=== PATIENT | female | born 1955 | race Caucasian/White ===

== ENCOUNTER 2016-07-02 11:21 | Inpatient (IN) | payer OTHER ==
[~2016-07-02] VITALS: Ht 170.2 cm; Wt 79.4 kg
[2016-07-02 00:30] VITALS: BP 170/90
--- NOTE | 2016-07-02 11:33 | ED GENERAL ADULT ---
See Addendum History of Present Illness General Chief Complaint: General Adult Stated Complaint: SLURRED SPEACH SINCE THISAM, R ARM WEAKNESS Source: patient, family Exam Limitations: no limitations Triage Nurses Notes Reviewed? yes HPI: 60 yo F PMH TIA presenting with neurologic Sx. Waxing and waning neurologic symptoms for the last 2-3 weeks, intermittent expressive aphasia and right hand weakness/numbness, evaluated by neurology yesterday, MRI onbtained, per patient showed CVA. Acute worsening of symptoms since waking up this morning around 9:00 , increased word finding difficulty and increased problems using right hand, weakness and "heaviness" feeling prompting presentation to the emergency department. Denies fevers, chills, neck pain, neck stiffness, headache, dizziness, visual changes, dysarthria. (GIANCARLO LEMONS,NICOLETTE) Vital Signs & Intake/Output Vital Signs & Intake/Output Vital Signs Date Time Temp Pulse Resp B/P B/P Pulse O2 O2 Flow FiO2 Mean Ox Delivery Rate 07/02 1336 98.3 93 18 170/96 95 Room Air 07/02 1204 Room Air 07/02 1130 97.5 104 18 190/110 98 Room Air Allergies Coded Allergies: gluten (INTOLERANCE 07/02/16) Reconcile Medications Aspirin (Ecotrin*) 81 MG TABLET.DR 81 MG PO DAILY CVA Atorvastatin Calcium 40 MG TABLET 40 MG PO 1700 CVA Clopidogrel Bisulfate (Plavix) 75 MG TABLET 75 MG PO DAILY CVA Garlic 1 EACH TABLET 3 TAB PO TID SUPPLEMENT (Reported) (TORSTEN LEMONS,ARIEL) Past History Travel History Traveled to [place] past 21 day No Medical History Any Pertinent Medical History? 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 Yes (NICOLETTE MONDRAGON MD) Review of Systems Review of Systems Constitutional: Reports: weakness. EENTM: Reports: no symptoms. Respiratory: Reports: no symptoms. Cardiovascular: Reports: no symptoms. GI: Reports: no symptoms. Genitourinary: Reports: no symptoms. Musculoskeletal: Reports: no symptoms. Skin: Reports: no symptoms. Neurological/Psychological: Reports: confusion, numbness, weakness, other (expressive aphasia). Hematologic/Endocrine: Reports: no symptoms. Immunologic/Allergic: Reports: no symptoms. All Other Systems: Reviewed and Negative (NICOLETTE MONDRAGON MD) Physical Exam Physical Exam General Appearance: well developed/nourished, no apparent distress, alert, awake , anxious Head: atraumatic, normal appearance Eyes: Bilateral: normal appearance, PERRL. 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 No CVA/TIA Diagnosis: Yes Severe Sepsis Present: No Septic Shock Present: No (GIANCARLO LEMONS,NICOLETTE) Progress Differential Diagnoses I considered the following diagnoses in my evaluation of the patient: [TIA, CVA, ICH] Initial ED EKG: normal sinus rhythm (GIANCARLO LEMONS,NICOLETTE) Plan of Care: Orders Procedure Date/time Status Admit to inpatient 07/02 1529 Active EKG 07/02 1155 Active URINALYSIS 07/02 1148 Active COMPREHENSIVE METABOLIC PANEL 07/02 1148 Complete CBC WITHOUT DIFFERENTIAL 07/02 1148 Complete Laboratory Tests 07/02/16 1200: Anion Gap 14, Estimated GFR > 60, BUN/Creatinine Ratio 15.7, Glucose 122 H, Calcium 9.7, Total Bilirubin 0.8, AST 21, ALT 34, Alkaline Phosphatase 82, Total Protein 7.3, Albumin 4.4, Globulin 2.9, Albumin/Globulin Ratio 1.5, CBC w Diff NO MAN DIFF REQ, RBC 4.95, MCV 93.4, MCH 31.0, RDW 13.2, MPV 7.9, Gran % 80.4 H , Lymphocytes % 15.9 L, Monocytes % 3.0, Eosinophils % 0.4, Basophils % 0.3, Absolute Granulocytes 8.3 H, Absolute Lymphocytes 1.6, Absolute Monocytes 0.3, Absolute Eosinophils 0, Absolute Basophils 0, PUBS MCHC 33.2 Physician MDM: 60 yo F PMH TIA presenting with neurologic Sx. VSS, neurologic exam as above. 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 Given that the patient's last known normal time was last night at 8:00 PM, she is well side of the window for TPA administration, therefore stroke code not called. EKG sinus rhythm. CMP, CBC unremarkable. CTA of head and neck with acute/subacute left parietal stroke. Discussed with the neurologist the patient saw yesterday , notes the stroke was also notified an MRI performed yesterday, states the patient will require admission if she has worsening symptoms, requested on-call neurology consult to see patient at [facility]. Dr. Romeo with on-call neurology service consult it, will see patient during admission. Admit hospitalist service for further management of new stroke. (GIANCARLO LEMONS,NICOLETTE) Departure Departure Disposition: HOME OR SELF CARE Condition: Stable Clinical Impression Primary Impression: CVA (cerebral vascular accident) Departure Forms: Customer Survey General Discharge Information Admission Note Spoke With: JOLIE LEMONS,AIMEE Rojas Documentation of Exam: Documentation of any treatments & extenuating circumstances including Concerns Regarding Discharge (functional status, medication knowledge or non-compliance, living conditions, etc.) that warrant an admission rather than observation: [ Patient has known carotid artery stenosis which is the likely etiology of her recent diagnosis stroke, if discharge she has a high likelihood of recurrent stroke with progressive neurologic deficit, severe morbidity, and possibly mortality, the patient has a newly identified left parietal stroke for which she has received no previous management, given the severity of underlying pathology she requires inpatient admission for further evaluation of the underlying cause of this stroke and rehabilitation that she cannot receive the outpatient setting ] (NICOLETTE MONDRAGON MD) Departure Prescriptions: Current Visit Scripts Clopidogrel Bisulfate (Plavix) 75 MG PO DAILY 28 Days Atorvastatin Calcium 40 MG PO 1700 28 Days Aspirin (Ecotrin*) 81 MG PO DAILY 28 Days PA/MILK DRIVER Co-Sign Statement Statement: ED Attending supervision documentation- [X] I saw and evaluated the patient. I have also reviewed all the pertinent lab results and diagnostic results. I agree with the findings and the plan of care as documented in the PA's/MILK DRIVER's documentation. [X] I have reviewed the ED Record and agree with the PA's/MILK DRIVER's documentation. [] Additions or exceptions (if any) to the PAs/MILK DRIVER's note and plan are summarized below: [] (TORSTEN LEMONS,ARIEL) Critical Care Note Critical Care Note Critical Care Time: non-applicable (GIANCARLO LEMONS,NICOLETTE)
--- NOTE | 2016-07-02 11:35 | NUR ---
60 YEAR OLD FEMALE TO ER WITH HER SPOUSE , PTS SPOUSE STATES THAT PTS SPEECH HAS BEEN OFF FOR A COUPLE OF WEEKS ,PT DOES NOT GO TO REGULAR DOCT[facility] AND STATES THAT SHE WENT TO HER NATURAL [facility] YESTERDAY WITH HER COMPLAINTS, STATES THAT HE ORDERED AND MRI WHICH SHOWED THAT SHE HAS BEEN HAVING TIA'S. PT DECIDED TO COME TO ER THIS AM FOR FURTHER EVAL. NO SLURRED SPEECH NOTED BUT PT NOTED TO HAVE DIFFICULT TIME GETTING OUT HER THOUGHTS. PT ALSO SOMPLAINS OF R ARM WEAKNESS THAT HAS ALSO BEEN GOING ON. PT NOTED WITH WEAK R HAND GRASP. PT HAS HISTORY OF HTN AND STTAES THAT SHE DOES NOT TAKE MEDS , BP 190/110. PT TO ROOM.
--- NOTE | 2016-07-02 11:44 | NUR ---
PT TO ROOM20 BY WHEEL, MD TORSTEN AND MD NICOLETTE TO BEDSIDE FOR PT EVAL.
--- NOTE | 2016-07-02 12:03 | NUR ---
BLOOD DRAWN AND SENT TO LAB-S[facility]. EKG IN PROGRESS.
[2016-07-02 12:10] LABS: ABSOLUTE BASOPHIL COUNT 0 /CUMM (0.0-0.2); ABSOLUTE EOSINOPHIL COUNT 0 /CUMM (0.0-0.7); ABSOLUTE GRANULOCYTE CT 8.3 /CUMM (1.4-6.5); ABSOLUTE LYMPH COUNT 1.6 /CUMM (1.2-3.4); ABSOLUTE MONOCYTE COUNT 0.3 /CUMM (0.10-0.60); BASOPHIL % 0.3 % (0.0-2.0); EOSINOPHIL % 0.4 % (0-5); GRANULOCYTE % 80.4 % (42.2-75.2); HEMATOCRIT 46.3 % (37-47); MEAN CORPUSCULAR HGB CONC 33.2 G/DL (33.0-37.0); MEAN CORPUSCULAR VOLUME 93.4 FL (81.0-99.0); MEAN PLATELET VOLUME 7.9 FL (7.4-10.4); PLATELET COUNT 289 /CUMM (130-400); RBC DISTRIBUTION WIDTH 13.2 % (11.5-14.5); RED BLOOD CELL CT 4.95 /CUMM (4.20-5.40); WHITE BLOOD CELL COUNT 10.3 /CUMM (4.8-10.8)
--- NOTE | 2016-07-02 14:30 | NUR ---
MD GIANCARLO TO BEDSIDE TO DISCUSS TEST RESULTS.
--- NOTE | 2016-07-02 14:54 | CT SCAN REPORT ---
EXAMINATION: CT ANGIOGRAM OF THE NECK CT ANGIOGRAM OF THE HEAD CLINICAL INFORMATION: Right hand weakness, expressive aphasia. Assess for CVA. COMPARISON: None. TECHNIQUE: Noncontrast axial CT scan of the head was obtained. Test bolus sequences followed by intravenous administration of 95 mL of Optiray 320. Helical imaging was performed in the axial plane from the mediastinum to the skull vertex. Delayed postcontrast imaging of the head was also performed. The degree of stenosis is based off NASCET criteria. The data was processed at the systems technologist workstation for generation of MIP sequences. Three-dimensional volume rendered reformatted images were also generated at an offline 3-D workstation. FINDINGS: CT head: There are areas of low parenchymal attenuation in the posterior left parieto-occipital region, which are in a wedge-shaped distribution, and are consistent with areas of acute/subacute infarction. There is no evidence of acute intracranial hemorrhage. No abnormal mass-effect or midline shift is seen. Garcia to white matter differentiation is well preserved. There are also areas of low density in the left basal ganglia, consistent with ischemia which is age-indeterminate. No extra-axial fluid collections are identified. There is no abnormal enhancement. The ventricles are normal in size. The osseous structures and soft tissues are normal. The mastoid air cells well-aerated. There is almost complete opacification of the right sphenoid sinus with sclerotic and slightly thickened strickland consistent with chronic sinus disease. There is extensive atheromatous calcification of the cavernous internal carotid arteries bilaterally and in the left vertebral artery. CTA neck: There is a classic configuration of the arch of the aorta. Beam hardening artifact from the contrast in the adjacent venous structures distorts imaging in the area. The great vessels of the neck appear widely patent. The subclavian arteries appear normal bilaterally. The common carotid arteries have normal caliber. The carotid bifurcations bilaterally appear normal, and there is no significant atheromatous calcification. Nonatheromatous plaque is seen around the dorsal aspect of the proximal internal carotid artery on the right. Both internal carotid arteries in the neck are patent with uniform caliber, although the caliber is diffusely narrower on the left compared to the right. The origins of both vertebral arteries are well seen and appear normal. Both vertebral arteries are widely patent and demonstrate good opacification throughout their cervical course. The left vertebral artery is dominant. Nonvascular: The lung apices appear well-aerated. The thyroid gland is not enlarged. There is no cervical lymphadenopathy. The temporomandibular joints appear normal. As described above there is opacification of the right sphenoid sinus. CTA head: In the anterior circulation, there is narrowing of the caliber of the petrous left internal carotid artery extending through the cavernous portion. There is severe narrowing of the supraclinoid left internal carotid artery which appears occluded just proximal to the internal carotid artery bifurcation. There is significant atheromatous calcification of the bilateral cavernous internal carotid arteries. The right carotid bifurcation appears normal. The A1 segment of the left anterior cerebral artery is thin but patent. The anterior cerebral artery A2 segments are patent bilaterally. The caliber of the left middle cerebral artery is narrower compared to the right relatively extensively, but no focal stenosis or occlusion is demonstrated. In the posterior circulation, the left vertebral artery is dominant. There is extensive atheromatous calcification in the proximal left vertebral artery, but the vessel remains patent. The basilar artery is patent. The posterior cerebral arteries bilaterally are patent. The dural venous sinuses opacify normally. IMPRESSION: 1. There are areas of low attenuation in the left parieto-occipital region, consistent with areas of acute/subacute infarction without evidence of hemorrhage. There is low attenuation in the left basal ganglia. These findings could be further evaluated with MRI scan. 2. There are no masses or areas of abnormal enhancement. 3. There is significant opacification of the right sphenoid sinus. 4. There is severe vasculopathy in the anterior and posterior circulations. There is narrowing of the left internal carotid artery compared to the right relatively diffusely. There is severe atheromatous calcification of the bilateral cavernous internal carotid arteries. The distal cervical left internal carotid artery has thinner caliber compared to the right, and the supraclinoid left internal carotid artery is markedly stenotic and is likely occluded just proximal to the left internal carotid artery bifurcation. The caliber of the left middle cerebral artery branches are diffusely narrower compared to the right, without focal stenosis. 5. There are atheromatous calcifications in the posterior circulation, but no focal stenosis or aneurysms are demonstrated. 6. This critical result was discussed with Javier Hernández by telephone on 07/02/2016 at 2:30 PM and it was ascertained that the content and urgency of the report was understood at the time of direct communication.
--- NOTE | 2016-07-02 16:01 | NUR ---
PT AWARE OF URINE SAMPLE, NOT ABLE TO PROVIDE ONE AT THIS TIME. FAMILY AT BEDSIDE. AWAITING ADMISSION.
--- NOTE | 2016-07-02 16:39 | NUR ---
PT ADMITTED TO ROOM 185-2
--- NOTE | 2016-07-02 17:01 | Cons- Neurology ---
General Information and HPI Consulting Request Date of Consult: 07/02/16 Requested By: MACARENA DUONG MD Reason for Consult: Left parietal stroke Source of Information: patient, family Exam Limitations: no limitations History of Present Illness: 60-year-old right-handed woman difficulty writing about 1 month ago. Until about one week ago when some of her revision she saw an op Sandra will just who told her she had a problem with the brain. On the same time had transient difficulty speaking which recovered. He seemed relatively well until Tuesday 2 days ago her natural pathic physician ordered an MRI scan which was done yesterday and disclosed a left parietal stroke. She saw Dr. Lee in neurologic consultation yesterday. Later yesterday she developed increased difficulty speaking which persists today. There is associated weakness of the right arm. Prior to yesterday she was not taking aspirin, does not know of any history of hypertension, has borderline cholesterol levels, uses garlic. Father had a cardiac problem at a young age, family history otherwise not known. Patient quit smoking about 30 years ago. Allergies/Medications Current Medications: Current Medications Sig/Sathya Start time Last Medication Dose Route Stop Time Status Admin Aspirin Buffered 325 MG DAILY 07/03 1000 AC PO Clopidogrel Bisulfate 75 MG DAILY 07/03 1000 AC PO Enoxaparin Sodium 40 MG DAILY 07/03 1000 AC SC Multivitamins 1 TAB DAILY 07/03 1000 AC PO Sodium Chloride 1,000 ML SEE RATE 07/02 1615 AC IV Review of Systems Review of Systems: ROS: A complete medical systems review was obtained. No chest pain or palpitations, no headaches, no other pertinent complaints uncovered. 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 No carotid bruits and no cardiac murmur. No peripheral edema Mental status: Alert, attentive, fully oriented, mild to moderate expressive aphasia, therefore memory and general fund of knowledge not specifically tested Funduscopic unremarkable Right homonymous hemianopsia. Eye movements full without nystagmus, pupils midsize equal round and reactive to light. 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 Leg sensation normal Tendon reflexes increased in the right arm and knee, right Babinski sign Coordination no ataxia Gait [testing deferred] Last 48 Hours of Lab Results: Laboratory Tests 07/02 1200 Chemistry Sodium (137 - 145 mmol/L) 144 Potassium (3.5 - 5.1 mmol/L) 4.1 Chloride (98 - 107 mmol/L) 103 Carbon Dioxide (22 - 30 mmol/L) 27 Anion Gap (5 - 16) 14 BUN (7 - 17 mg/dL) 11 Creatinine (0.5 - 1.0 mg/dL) 0.7 Estimated GFR (>60 ml/min) > 60 BUN/Creatinine Ratio (7 - 25 %) 15.7 Glucose (65 - 99 mg/dL) 122 H Calcium (8.4 - 10.2 mg/dL) 9.7 Total Bilirubin (0.2 - 1.3 mg/dL) 0.8 AST (14 - 36 U/L) 21 ALT (9 - 52 U/L) 34 Alkaline Phosphatase (<127 U/L) 82 Total Protein (6.3 - 8.2 g/dL) 7.3 Albumin (3.5 - 5.0 g/dL) 4.4 Globulin (1.9 - 4.2 gm/dL) 2.9 Albumin/Globulin Ratio (1.1 - 2.2 %) 1.5 Hematology CBC w Diff NO MAN DIFF REQ WBC (4.8 - 10.8 /CUMM) 10.3 RBC (4.20 - 5.40 /CUMM) 4.95 Hgb (12.0 - 16.0 G/DL) 15.4 Hct (37 - 47 %) 46.3 MCV (81.0 - 99.0 FL) 93.4 MCH (27.0 - 31.0 PG) 31.0 RDW (11.5 - 14.5 %) 13.2 Plt Count (130 - 400 /CUMM) 289 MPV (7.4 - 10.4 FL) 7.9 Gran % (42.2 - 75.2 %) 80.4 H Lymphocytes % (20.5 - 51.1 %) 15.9 L Monocytes % (1.7 - 9.3 %) 3.0 Eosinophils % (0 - 5 %) 0.4 Basophils % (0.0 - 2.0 %) 0.3 Absolute Granulocytes (1.4 - 6.5 /CUMM) 8.3 H Absolute Lymphocytes (1.2 - 3.4 /CUMM) 1.6 Absolute Monocytes (0.10 - 0.60 /CUMM) 0.3 Absolute Eosinophils (0.0 - 0.7 /CUMM) 0 Absolute Basophils (0.0 - 0.2 /CUMM) 0 PUBS MCHC (33.0 - 37.0 G/DL) 33.2 Imaging/Other Studies: Outpatient MRI was done and is to be loaded into the computer system here from the disc CTA head and neck: IMPRESSION: 1. There are areas of low attenuation in the left parieto-occipital region, consistent with areas of acute/subacute infarction without evidence of hemorrhage. There is low attenuation in the left basal ganglia. These findings could be further evaluated with MRI scan. 2. There are no masses or areas of abnormal enhancement. 3. There is significant opacification of the right sphenoid sinus. 4. There is severe vasculopathy in the anterior and posterior circulations. There is narrowing of the left internal carotid artery compared to the right relatively diffusely. There is severe atheromatous calcification of the bilateral cavernous internal carotid arteries. The distal cervical left internal carotid artery has thinner caliber compared to the right, and the supraclinoid left internal carotid artery is markedly stenotic and is likely occluded just proximal to the left internal carotid artery bifurcation. The caliber of the left middle cerebral artery branches are diffusely narrower compared to the right, without focal stenosis. 5. There are atheromatous calcifications in the posterior circulation, but no focal stenosis or aneurysms are demonstrated. Assessment/Plan Assessment: Left parietal stroke with preceding TIAs due to atherosclerotic cerebrovascular disease. An signs are within the left MCA and therefore left internal carotid territory degree of stenosis unclear from the CTA. The patient was not on aspirin or other anti-antithrombotic's, nor on statins Recommendations: Carotid Doppler to better estimate percentage of narrowing cardiac telemetry Echocardiogram Fasting lipid profile Aspirin and Plavix have been started here and should be continued Begin atorvastatin 40 MG by mouth daily Stroke education started with family and daughter were present today Permissive hypertension at this time, allow the current 170 to 180 systolic range Will follow as needed Consult Acknowledgment - Thank you for your consult request.
--- NOTE | 2016-07-02 17:06 | NUR ---
HOUSE STAFF AT BEDSIDE FOR PT EVAL.
[2016-07-02] MEDS ORDERED: GARLIC1 EAC1 PO (17:17)
--- NOTE | 2016-07-02 17:35 | NUR ---
REPORT CALLED TO TELE. PT AT US AT THIS TIME.
--- NOTE | 2016-07-02 17:36 | History & Physical ---
NEFTALY LEMONS[place] [place] 1736: General Information and HPI MD Statement: I have seen and personally examined DILAN BALDERRAMA and documented this H&P. The patient is a 60 year old F who presented with a patient stated chief complaint of word-finding difficulties and right upper extremity weakness. Source of Information: patient, family Exam Limitations: no limitations History of Present Illness: Ms. Balderrama is a 60 y/o F with PMHx of HTN who presents with waxing and waning neurological symptoms for the past few weeks. History is provided by patient and her and daughter at bedside. For the past month leading up to current presentation, patient has been having difficulty writing, stating that her handwriting has been "messy" during this time. One week ago, she had a transient episode of word-finding difficulties, with her reporting that her mouth appeared "crooked" at that time. The episode lasted about 10 minutes. Two days ago she presented to her naturopathic physician who ordered MRI Brain, performed yesterday, which revealed a left parietal stroke. Based on these findings, she went to see neurologist Dr. Quinn Lee who started her on aspirin and Plavix and recommended ECHO and carotid doppler US. Patient was doing relatively well when she developed right upper weakness yesterday, stating that her right arm and hand felt heavy and weak, with strength about 50% of normal. Speech difficulty worsened during this time as well and has persisted up until current presentation. This morning, she woke up with increasing right arm weakness associated with numbness and decided to come to the ED for further evaluation. For the past week leading up to current presentation, patient has been experiencing headaches. Her has noted that she has been having difficulties with peripheral vision over the past month. Of note, patient does not take any medications other than garlic supplements for borderline elevated cholesterol levels and Advil PRN for sinusitis and hand pain and swelling. Allergies/Medications Allergies: Coded Allergies: gluten (INTOLERANCE 07/02/16) Home Med list Garlic 1 EACH TABLET 3 TAB PO TID SUPPLEMENT (Reported) Past History Travel History Traveled to [place] past 21 day No Medical History Neurological: TIA EENT: sinusitis Cardiovascular: hypertension Respiratory: NONE Gastrointestinal: NONE Hepatic: NONE Renal: NONE Musculoskeletal: NONE Psychiatric: NONE Endocrine: NONE Blood Disorders: NONE Cancer(s): NONE GEOLOGY TEACHER/Reproductive: NONE Surgical History Surgical History: none Past Family/Social History Family History Relations & Conditions if any FATHER Cardiac disorder Psychosocial History Where do you live? Home Who Do You Live With? spouse Services at Home: None Primary Language: Welsh Smoking Status: Former Smoker (Quit 30 Years Ago) ETOH Use: denies use Illicit Drug Use: denies illicit drug use Functional Ability ADLs Independent: dressing, eating, toileting, bathing. Ambulation: independent IADLs Independent: shopping, housework, finances, food prep, telephone, transportation , medication admin. Employment History Employment Employed Profession/Employer [employer] Review of Systems Review of Systems Constitutional: Reports: no symptoms. EENTM: Reports: visual changes. Cardiovascular: Reports: no symptoms. Respiratory: Reports: no symptoms. GI: Reports: no symptoms. Genitourinary: Reports: no symptoms. Musculoskeletal: Reports: joint swelling (knuckles on R hand, chronic). Skin: Reports: no symptoms. Neurological/Psychological: Reports: see HPI, headache, numbness, unable to move upper ext, weakness. Hematologic/Endocrine: Reports: no symptoms. Immunologic/Allergic: Reports: no symptoms. All Other Systems: Reviewed and Negative Exam & Diagnostic Data Last 24 Hrs of Vital Signs/I&O Vital Signs Date Time Temp Pulse Resp B/P B/P Pulse O2 O2 Flow FiO2 Mean Ox Delivery Rate 07/03 0022 99.2 85 20 206/110 92 Room Air 07/02 1822 98.7 89 18 160/88 97 Room Air 07/02 1749 99.2 91 18 173/90 97 Room Air 07/02 1600 99.6 93 18 171/99 97 Room Air 07/02 1336 98.3 93 18 170/96 95 Room Air 07/02 1204 Room Air 07/02 1130 97.5 104 18 190/110 98 Room Air Intake & Output 07/03 0800 07/03 0000 07/02 1600 Intake Total 336 Output Total 2 Balance 334 Intake, IV 96 Intake, Oral 240 Number 0 Bowel Movements Output, Urine 2 Patient 79.379 kg 79.379 kg Weight Physical Exam General Appearance Alert, Oriented X3, No Acute Distress HEENT Atraumatic, PERRLA, EOMI, Mucous Membr. moist/pink, Right Homonymous Hemianopsia Neck +2 Carotid Pulse wo Bruit Cardiovascular Regular Rate, Normal S1, Normal S2, No Murmurs, Gallops, Rubs Lungs Clear to Auscultation Abdomen Soft, No Tenderness, Positive Bowel Sounds Neurological Cranial Nerves 3-12 NL (Except Mild Right Facial Droop), Expressive Aphasia, Mild Right Facial Droop, Strength at 4/5 in RUE, 5/5 in All Other Extremities , Right Arm Pronator Drift, No Dysmetria or Dysdiadochokinesia, Sensation Reduced to Light Touch on Right Arm Extremities No Clubbing, No Cyanosis, No Edema Last 24 Hrs of Labs/Mateo: Laboratory Tests 07/02/16 1800: Urine Color YEL, Urine Clarity CLEAR, Urine pH 6.5, Ur Specific [place] 1.010, Urine Protein NEG, Urine Ketones 40 H, Urine Nitrite NEG, Urine Bilirubin NEG, Urine Urobilinogen 0.2, Ur Leukocyte Esterase NEG, Ur Microscopic SEDIMENT EXAMINED, Urine RBC RARE, Urine WBC RARE, Ur Epithelial Cells RARE, Urine Bacteria RARE H, Urine Mucus RARE, Urine Hemoglobin TRACE-INTACT, Urine Glucose NEG 07/02/16 1200: Anion Gap 14, Estimated GFR > 60, BUN/Creatinine Ratio 15.7, Glucose 122 H, Calcium 9.7, Total Bilirubin 0.8, AST 21, ALT 34, Alkaline Phosphatase 82, Troponin I < 0.01, Total Protein 7.3, Albumin 4.4, Globulin 2.9, Albumin/ Globulin Ratio 1.5, CBC w Diff NO MAN DIFF REQ, RBC 4.95, MCV 93.4, MCH 31.0, RDW 13.2, MPV 7.9, Gran % 80.4 H, Lymphocytes % 15.9 L, Monocytes % 3.0, Eosinophils % 0.4, Basophils % 0.3, Absolute Granulocytes 8.3 H, Absolute Lymphocytes 1.6, Absolute Monocytes 0.3, Absolute Eosinophils 0, Absolute Basophils 0, PUBS MCHC 33.2, ESR Westergren 3 Diagnostic Data EKG Results Sinus rhythm HR 88 QTc 480 Other Results CTA HEAD/NECK: 1. There are areas of low attenuation in the left parieto-occipital region, consistent with areas of acute/subacute infarction without evidence of hemorrhage. There is low attenuation in the left basal ganglia. These findings could be further evaluated with MRI scan. 2. There are no masses or areas of abnormal enhancement. 3. There is significant opacification of the right sphenoid sinus. 4. There is severe vasculopathy in the anterior and posterior circulations. There is narrowing of the left internal carotid artery compared to the right relatively diffusely. There is severe atheromatous calcification of the bilateral cavernous internal carotid arteries. The distal cervical left internal carotid artery has thinner caliber compared to the right, and the supraclinoid left internal carotid artery is markedly stenotic and is likely occluded just proximal to the left internal carotid artery bifurcation. The caliber of the left middle cerebral artery branches are diffusely narrower compared to the right, without focal stenosis. 5. There are atheromatous calcifications in the posterior circulation, but no focal stenosis or aneurysms are demonstrated. 6. This critical result was discussed with Javier Hernández by telephone on 2016 at 2:30 PM and it was ascertained that the content and urgency of the report was understood at the time of direct communication. Assessment/Plan Assessment: 60 y/o F with PMHx of HTN who presents with neurological symptoms including word -finding difficulties and right hand weakness, with CTA Head revealing acute/ subacute infarct in the left parieto-occipital region. #Acute left parieto-occipital CVA: CTA Head/Neck with acute/subacute infarct in the left parieto-occipital region without evidence of hemorrhage, as well as severe diffuse vasculopathy with stenosis of the bilateral carotid arteries, however degree of stenosis is unclear from CTA. Per neuro, current presentation is secondary to a left parietal stroke, likely affecting MCA, with preceding TIAs secondary to atherosclerotic cerebrovascular disease. Current neuro exam remarkable for [id number] expressive aphasia, mild right facial droop, RUE weakness, reduced sensation to light touch on RUE and right homonymous hemianopsia. Patient is currently out of tPA window as symptoms have been present for two days. Passed bedside swallow evaluation. * Admit to telemetry for continuous cardiac monitoring. * Neurology consulted. Appreciate their recs. * Neuro-checks Q4H. * ECHO ordered to evaluate for embolic source. * Carotid doppler US ordered for more precise estimation of the percentage of stenosis. * Allow permissive HTN to SBP of 170-180. * PT/OT. * Check lipid panel. * Start aspirin 325 mg PO daily, Plavix 75 mg PO daily and atorvastatin 40 mg PO daily. Diet: Heart Healthy DVT PPx: Lovenox and ALPs CODE: FULL As Ranked By This Provider Problem List: 1. Left-sided cerebrovascular accident (CVA) 2. Expressive aphasia 3. RUE weakness 4. Bilateral carotid artery stenosis 5. TIA (transient ischemic attack) 6. HTN (hypertension) 7. Acute ischemic left MCA stroke Core Measures/Miscellaneous Acute Coronary Syndrome ACS Diagnosis: No Cerebrovascular Accident CVA/TIA Diagnosis: Yes NIH Stroke Scale: Total 6 Date Last Known Well: 06/30/16 Time Last Known Well: 0000 (Unknown) Neurological S/S of CVA: Difficulty Speaking, Facial Hemiparesis, Muscle Weakness, Weakness of Limb Symptom Start Date: 06/30/16 Symptom Start Time: 0000 (Unknown) Reason tPA not ordered Medical Contraindication (Out of window, sx for 2 days) Bedside Swallow Eval Done: Yes Result of Evaluation: Pass Antithrombotic: Yes AFIB: No Aflutter: No Anticoagulant: No No Anticoag d/t: Medical Contraindication (No Indication for Anticoag) Evidence of Atherosclerosis: Yes LDL Assessed Within 24 Hours: Yes Currently on Statin: Yes Rehab Needs Assessed: Medical Eval for Rehab PT Consult Ordered: Yes Congestive Heart Failure CHF Diagnosis: No Venous Thromboembolism VTE Risk Factors: Acute medical illness, Age > 40 No [facility] VTE prophylaxis d/t: No contraindications No VTE Pharm Prophylaxis d/t: No contraindications VTE Diagnosis: No VTE Type: NONE VTE Confirmed by (Test): NONE Severe Sepsis Severe Sepsis Present: No Septic Shock Septic Shock Present: No Miscellaneous Documentation Attending Case Discussed With: [facility] Primary Care Physician: JARED HARRIS Patient sees these Specialists Neurologist Dr. Quinn Lee MD Level of Patient Care: Telemetry HAKAN CARREON 07/02/16 1740: Exam & Diagnostic Data Diagnostic Data Other Results Head and neck CTA: IMPRESSION: 1. There are areas of low attenuation in the left parieto-occipital region, consistent with areas of acute/subacute infarction without evidence of hemorrhage. There is low attenuation in the left basal ganglia. These findings could be further evaluated with MRI scan. 2. There are no masses or areas of abnormal enhancement. 3. There is significant opacification of the right sphenoid sinus. 4. There is severe vasculopathy in the anterior and posterior circulations. There is narrowing of the left internal carotid artery compared to the right relatively diffusely. There is severe atheromatous calcification of the bilateral cavernous internal carotid arteries. The distal cervical left internal carotid artery has thinner caliber compared to the right, and the supraclinoid left internal carotid artery is markedly stenotic and is likely occluded just proximal to the left internal carotid artery bifurcation. The caliber of the left middle cerebral artery branches are diffusely narrower compared to the right, without focal stenosis. 5. There are atheromatous calcifications in the posterior circulation, but no focal stenosis or aneurysms are demonstrated. Resident Review Statement Resident Statement: examined this patient, discussed with sales management intern, agreed with sales management intern, discussed with family, reviewed EMR data (avail) Other Findings: Mrs. Balderrama is a 60 yo women with PMHx of HTN managaed with Garlic tab only, presented to ED with a c/o of dificulty speech and Rt. upper extrimity weakness. History provided by patient herself, . She mentioned that she had dificulty expressing her thought started last tuesday, her noticed abnormal fine movement such as writing, she went to her natropathic PCP who ordered MRI and she was seen by neurologist at [place] who prescribed plavix, aspirin and statin and recommended US of the neck and echocardiogram. Yesterday she started to have Rt. upper extrimity. Today at am her right upper extrimity get worse associated with numbness so, she decided to come to ED for more evaluation. Her notice problems with peripheral vision over the last month, he stat that she can't see on the periphery. Details as above. Vitals, labs and examination as above Assessment: #CVA. #Hx. of HTN Plan: -Will admitt ot telemetry floor -Neurochecks Q4 hrs -Neurology consult with -Dual antiplatelete and statin -Carotid US -Echocardiogram -Permissive action of BP. Unless BP>200 will give Labetalol of hydralazine depending on HR -Passes swallow eval -PT/OT -Lipid panel at am -Will order ESR dvt ppx: Lovenox Full code MACARENA DUONG MD 07/02/16 1828: Attending MD Review Statement Attending Statement Attending MD Statement: examined this patient, discuss w/resident/PA/LITERACY SPECIALIST, agreed w/resident/PA/LITERACY SPECIALIST, reviewed EMR data (avail) Attending Assessment/Plan: 60F PMH HTN presenting with word-finding difficulties, transient aphasia, and right hand weakness in the setting of acute left parietal-occipital CVA. Symptoms for 2 days, out of tPA window. Had outpatient eval by neurologist, had MRI, was started on ASA and Plavix yesterday with worsening of symptoms since then. CTA head/neck shows infarction without bleed and diffuse vasculopathy with stenosis of carotid arteries. EKG NSR, troponin negative. Neuro exam shows right hand weakness and dysarthria, otherwise normal. Plan - Admit to telemetry - ASA and Plavix - Atorvastatin 80mg - Check lipid panel - Neuro checks q4h - Neurology consult - Permissive hypertension - Continue home medications - PT/OT - Passed bedside swallow - DVT PPx
--- NOTE | 2016-07-02 17:45 | NUR ---
PT RATURNED FROM [facility]. [facility] CALLED FOR TRANSPORT.
[2016-07-02 18:22] VITALS: BP 160/88
--- NOTE | 2016-07-02 18:24 | PN- Student ---
Subjective Subjective: Medical Student H&P: CC: slurred speech and RUE weakness since this am HPI: Tiffanie Jackson is a 60yo white female with a PMH significant for HTN who presented to the ED today, 07/02/16, with complaints of slurred speech, word finding difficulty, and worsening RUE weakness upon waking at 0900. She states her RUE strength is approximately 50% of normal and her RUE feels "heavy ". The patient states she has been experiencing waxing and waning RUE weakness, difficulty writing, and difficulty with fine motor skills for the past 2-3 weeks. She has also had intermittent expressive aphasia since Tuesday06/26/16. She saw her naturopathic doctor yesterday following an episode of expressive aphasia. At that time, she was sent for an MRI of the head, which revealed a CVA. She was referred to a neurologist in [place], who planned to start the patient on Plavix, ASA, and a statin, and ordered lab work and Doppler US of the carotids. The patient had not had this workup prior to presentation today. The patient denies fevers, chills, neck pain, neck stiffness, headache, dizziness, parasthesia, chest pain, shortness of breath, nausea, vomiting, diarrhea, and pain. PMH: sinusitis, TIA, HTN, carotid artery stenosis, ?arthritis PSH: none Home Meds: * Multivitamin * garlic supplements (for HTN) * Advil prn for sinusitis/hand pain Social: denies tobacco, alcohol, and illicit drug use. . Has adult children. Employed as a [employer]. Prefers to see naturopathic doctors Family Hx: Patient/family unsure of family history ROS: General: weakness Neuro: confusion, expressive aphasia, numbness HEENT: reports loss of peripheral vision, sinus pain. denies sore throat or recent cold Neck: reports no symptoms CV: reports no symptoms Pulmonary: Reports no symptoms GI: reports no symptoms : reports no symptoms MSK: reports swelling of knuckles on right hand. Skin: reports no symptoms Current Medications Sig/Sathya Start time Last Medication Dose Route Stop Time Status Admin Aspirin Buffered 325 MG DAILY 07/03 1000 AC PO Clopidogrel Bisulfate 75 MG DAILY 07/03 1000 AC PO Enoxaparin Sodium 40 MG DAILY 07/03 1000 AC SC Multivitamins 1 TAB DAILY 07/03 1000 AC PO Sodium Chloride 1,000 ML SEE RATE 07/02 1615 AC IV Objective Objective: Vital Signs Date Time Temp Pulse Resp B/P B/P Pulse O2 O2 Flow FiO2 Mean Ox Delivery Rate 07/02 1600 99.6 93 18 171/99 97 Room Air 07/02 1336 98.3 93 18 170/96 95 Room Air 07/02 1204 Room Air 07/02 1130 97.5 104 18 190/110 98 Room Air EKG: NSR. No acute ST-T wave abnormalities. No previous EKGs for comparison General: awake, talking with family Neuro: A&O x2, unsure of current date. Cranial nerves grossly intact. Minimally decreased strength in RUE. Pronator drift in RUE. Apparent difficulty in initiating movement of RUE. Uses LUE to picking supervisor/move RUE. Difficulty following commands. Expressive aphasia noted. HEENT: EOMI. Right homonymous hemianopsia Neck: supple without adenopathy CV: RRR without murmur Pulmonary: CTA GI: soft and non-tender MSK: swelling evident in knuckles of right hand. Other joints of RUE grossly normal Skin: no evidence of rashes or bruising Extremities: warm and dry, no edema. Results Results: Laboratory Tests 07/02 07/02 1800 1200 Chemistry Sodium (137 - 145 mmol/L) 144 Potassium (3.5 - 5.1 mmol/L) 4.1 Chloride (98 - 107 mmol/L) 103 Carbon Dioxide (22 - 30 mmol/L) 27 Anion Gap (5 - 16) 14 BUN (7 - 17 mg/dL) 11 Creatinine (0.5 - 1.0 mg/dL) 0.7 Estimated GFR (>60 ml/min) > 60 BUN/Creatinine Ratio (7 - 25 %) 15.7 Glucose (65 - 99 mg/dL) 122 H Calcium (8.4 - 10.2 mg/dL) 9.7 Total Bilirubin (0.2 - 1.3 mg/dL) 0.8 AST (14 - 36 U/L) 21 ALT (9 - 52 U/L) 34 Alkaline Phosphatase (<127 U/L) 82 Total Protein (6.3 - 8.2 g/dL) 7.3 Albumin (3.5 - 5.0 g/dL) 4.4 Globulin (1.9 - 4.2 gm/dL) 2.9 Albumin/Globulin Ratio (1.1 - 2.2 %) 1.5 Hematology CBC w Diff NO MAN DIFF REQ WBC (4.8 - 10.8 /CUMM) 10.3 RBC (4.20 - 5.40 /CUMM) 4.95 Hgb (12.0 - 16.0 G/DL) 15.4 Hct (37 - 47 %) 46.3 MCV (81.0 - 99.0 FL) 93.4 MCH (27.0 - 31.0 PG) 31.0 RDW (11.5 - 14.5 %) 13.2 Plt Count (130 - 400 /CUMM) 289 MPV (7.4 - 10.4 FL) 7.9 Gran % (42.2 - 75.2 %) 80.4 H Lymphocytes % (20.5 - 51.1 %) 15.9 L Monocytes % (1.7 - 9.3 %) 3.0 Eosinophils % (0 - 5 %) 0.4 Basophils % (0.0 - 2.0 %) 0.3 Absolute Granulocytes (1.4 - 6.5 /CUMM) 8.3 H Absolute Lymphocytes (1.2 - 3.4 /CUMM) 1.6 Absolute Monocytes (0.10 - 0.60 /CUMM) 0.3 Absolute Eosinophils (0.0 - 0.7 /CUMM) 0 Absolute Basophils (0.0 - 0.2 /CUMM) 0 PUBS MCHC (33.0 - 37.0 G/DL) 33.2 Urines Urine Color (YEL,AMB,STR) Pending Urine Clarity (CLEAR) Pending Urine pH (5.0 - 8.0) Pending Ur Specific [place] (1.001 - 1.035) Pending Urine Protein (NEG,<30 MG/DL) Pending Urine Ketones (NEG) Pending Urine Nitrite (NEG) Pending Urine Bilirubin (NEG) Pending Urine Urobilinogen (0.1 - 1.0 EU/dl) Pending Ur Leukocyte Esterase (NEG) Pending Ur Microscopic SEDIMENT EXAMINED Urine RBC (0 - 5 /HPF) Pending Urine Hemoglobin (NEG) Pending Urine Glucose (N MG/DL) Pending CTA head and neck: IMPRESSION: 1. There are areas of low attenuation in the left parieto-occipital region, consistent with areas of acute/subacute infarction without evidence of hemorrhage. There is low attenuation in the left basal ganglia. These findings could be further evaluated with MRI scan. 2. There are no masses or areas of abnormal enhancement. 3. There is significant opacification of the right sphenoid sinus. 4. There is severe vasculopathy in the anterior and posterior circulations. There is narrowing of the left internal carotid artery compared to the right relatively diffusely. There is severe atheromatous calcification of the bilateral cavernous internal carotid arteries. The distal cervical left internal carotid artery has thinner caliber compared to the right, and the supraclinoid left internal carotid artery is markedly stenotic and is likely occluded just proximal to the left internal carotid artery bifurcation. The caliber of the left middle cerebral artery branches are diffusely narrower compared to the right, without focal stenosis. 5. There are atheromatous calcifications in the posterior circulation, but no focal stenosis or aneurysms are demonstrated. Assessment/Plan Assessment: Tiffanie Jackson is a 60 yo white F with PMH significant for HTN who presented to the ED with s/s of CVA. Plan: CVA: Suspect preceding TIA over the past 2 days. Ischemic areas without hemorrhage confirmed by CTA of head. Patient has multiple areas of stenosis in anterior and posterior circulations. Expressive aphasia is present. Motor apraxia vs. motor weakness in RUE. Patient is past the tPA window. * Doppler US of carotid arteries to quantify degree of stenosis * Neurology to follow * Plavix 75mg po daily * ASA 325 mg po daily * Atorvastatin 40 mg po daily * Admit to telemetry, serial troponins, obtain Echo to r/o cardiac etiology HTN: patient has known hypertension. Has been seeing a naturopathic doctor and taking garlic supplements. HTN does not appear to be controlled with these means. Admission BP was 190/110. * Will not treat unless SBP >200 mmHg given areas of stenosis, ischemic stroke * Labetalol prn for SBP >200 mmHg * Neurology recommendations Pain: patient has complained of sinusitis pain, and occasional pain in swollen knuckles on right hand. Is not constant or severe in nature. * Percocet q6h prn for moderate pain Code Status: Full Diet: Heart Health DVT prophylaxis: Lovenox DVT prophylaxis: Lovenox
--- NOTE | 2016-07-02 18:33 | Admission Certification ---
Admission Certification Certification Statement - As attending physician, I certify that at the time of - admission, based on clinical presentation, severity of - symptoms, need for further diagnostic testing and - therapeutic interventions, and risk of adverse outcomes - without in-hospital treatment, in my clinical assessment, - this patient requires an acute hospital stay for a minimum - of two nights or longer. I have also considered psychsocial - factors such as support system, advanced age, financial - issues, cognitive issues, and failed out-patient treatments, - past re-admission history, safety of patient, and lack of - compliance as applicable. Specific rationale supporting this admission is: Acute ischemic CVA
--- NOTE | 2016-07-02 21:41 | ULTRASOUND REPORT ---
EXAMINATION: DUPLEX BILATERAL CAROTID ULTRASOUND CLINICAL INFORMATION: Check for stenoses with vertebral flows. COMPARISON: CTA head and neck from the same date TECHNIQUE: Duplex bilateral carotid US was performed using real-time ultrasound and Doppler techniques (integrating B-mode 2D vascular images, Doppler spectral analysis and color flow Doppler imaging). These techniques were utilized to interrogate the extracranial carotid and vertebral arteries bilaterally. The degree of stenosis is based off criteria similar to NASCET. FINDINGS: 1. On the right: No significant plaque is evident at the carotid bifurcation. Velocity measurements are abnormal with mildly elevated peak systolic velocities in the right proximal common carotid, distal common carotid, proximal internal carotid, and distal internal carotid artery of 139, 116, 97, and 143 cm/s. In the absence of significant plaque, these values do not indicate a stenosis and are likely normal. The vertebral artery is patent demonstrating antegrade flow. Peak systolic velocity is 58 cm/s. The right external carotid artery shows no significant stenosis. No significant thickening of the intima and media of the common carotid artery. 2. On the left: No significant plaque is present at the carotid bifurcation. Peak systolic velocity in the common proximal and distal common carotid artery is 134 cm/s and 103. Velocity measurements within the left ICA are relatively low at 32 and 39 cm/s. These abnormally low velocities likely reflect the narrowed intracranial vessels and the resultant diminished intracranial flow. The waveforms are high resistance as a result. The vertebral artery is patent demonstrating antegrade flow. Peak systolic velocity is 80 cm/s. The left external carotid artery shows no significant stenosis. No significant thickening of the intima and media of the common carotid artery. IMPRESSION: No appreciable stenoses in the extracranial carotid arteries or vertebral arteries. Slightly increased velocities within portions of the right common and internal carotid artery and within the left common carotid artery likely result from the abnormal intracranial blood flow.
[2016-07-03 00:22] VITALS: BP 206/110
[2016-07-03 01:00] VITALS: BP 150/90
--- NOTE | 2016-07-03 03:03 | NUR ---
REC'D REPORT FROM SHAYLA MARTINS @1999. PT ADMITTED W/LACUNAR STROKE/TIA. ASSESSMENTS DONE. ALERT, FOLLOWING COMMANDS & AT TIMES HAVE SOME DIFFICULTY EXPRESSIVE WORDS/EXPRESSIVE ASPHASIC. R SIDE WEAKNESS W/SL DRIFT BUT STRONG HAND GRASP. GOOD STRENGTH TO BLE & EILEEN. FAMILY AT BEDSIDE & WANTED UPDATES ON PT'S STATUS. INFORMED FAMILY MUCH POSSIBLE BUT HAD DR. ZHAO SPEAK TO THE FAMILY W/ANY CONCERNS. IVF OF NS STARTED @75ML/HR TO NEW IV TO R HAND INFUSING WELL. ASSISTED X1 TO TOILET & VOIDED WELL. 2230 SBP 162/88. KIRK WILL BE ROOMING IN. INFORMED IF THERE'S ANOTHER FEMALE PT IN THE ROOM HE CANNOT STAY IN BUT OFFERED THE LOBBY AREAS REST. PT & HAD GOOD UNDERSTANDING. 0020 SBP 206/[address] ZHAO. STOPPED IVF FOR NOW. NIH 1. SPEECH IS GETTING BETTER. ABLE TO EXPRESS HER WORDS. KAYLEEN STILL WEAK. 0045 DR. ZHAO WENT IN TO RECHECK BP 170/90. TO KEEP SBP 160-180'S 0100 BP 150/90. RESTARTED IVF PER . CONT TO MONITOR.
--- NOTE | 2016-07-03 06:39 | PN- Housestaff ---
Subjective Follow-up For: CVA Subjective: Patient seen and examined, she is not in acute distress. She still feels the weakness on the rt. upper extrimity. Vitals stable overnight, Review of Systems Constitutional: Reports: no symptoms. Cardiovascular: Reports: no symptoms. Respiratory: Reports: no symptoms. Gastrointestinal: Reports: no symptoms. Neurological/Psychological: Reports: weakness (Rt. arm). Objective Last 24 Hrs of Vital Signs/I&O Vital Signs Date Time Temp Pulse Resp B/P B/P Pulse O2 O2 Flow FiO2 Mean Ox Delivery Rate 07/03 0100 85 150/90 07/03 0022 99.2 85 20 206/110 92 Room Air 07/03 0000 92 Room Air 07/02 1822 98.7 89 18 160/88 97 Room Air 07/02 1749 99.2 91 18 173/90 97 Room Air 07/02 1600 99.6 93 18 171/99 97 Room Air 07/02 1336 98.3 93 18 170/96 95 Room Air 07/02 1204 Room Air 07/02 1130 97.5 104 18 190/110 98 Room Air Intake & Output 07/03 0800 07/03 0000 07/02 1600 Intake Total 336 Output Total 2 Balance 334 Intake, IV 96 Intake, Oral 240 Number 0 Bowel Movements Output, Urine 2 Patient 175 lb 175 lb Weight Physical Exam General Appearance: Alert, Cooperative, No Acute Distress Skin: No Rashes, No Breakdown, No Significant Lesion HEENT: Atraumatic, EOMI Cardiovascular: Normal S1, Normal S2 Lungs: Clear to Auscultation, Normal Air Movement Abdomen: Normal Bowel Sounds, Soft, No Tenderness Extremities: No Edema, Normal Pulses Current Medications: Current Medications Sig/Sathya Start time Last Medication Dose Route Stop Time Status Admin Acetaminophen 650 MG Q6P PRN 07/02 1814 AC PO Aspirin Buffered 325 MG DAILY 07/03 1000 DC PO Aspirin Buffered 81 MG DAILY 07/03 1000 AC PO Aspirin Buffered 325 MG DAILY 07/02 1815 DC 07/02 PO 2131 Atorvastatin Calcium 40 MG 1700 07/02 1900 CAN PO Atorvastatin Calcium 40 MG 1700 07/02 1900 AC 07/02 PO 213 Clopidogrel Bisulfate 75 MG DAILY 07/03 1000 DC PO Clopidogrel Bisulfate 75 MG DAILY 07/02 1815 AC 07/02 PO 213 Enoxaparin Sodium 40 MG DAILY 07/03 1000 AC SC Multivitamins 1 TAB DAILY 07/03 1000 DC PO Multivitamins 1 TAB DAILY 07/02 1815 AC 07/02 PO 2132 Oxycodone/ 1 TAB Q6P PRN 07/02 1814 AC Acetaminophen PO Patient Medication 1 UNIT ONE NR 07/02 1900 DC Teaching ED 07/02 1930 Sodium Chloride 1,000 ML SEE RATE 07/02 1615 AC 07/02 IV 2145 Last 24 Hrs of Lab/Mateo Results Last 24 Hrs of Labs/Mics: Laboratory Tests 07/03/16 0610: Sodium Pending, Potassium Pending, Chloride Pending, Carbon Dioxide Pending, Anion Gap Pending, BUN Pending, Creatinine Pending, BUN/Creatinine Ratio Pending , Triglycerides Pending, Cholesterol Pending, LDL Cholesterol, Calc Pending, HDL Cholesterol Pending, Cholesterol/HDL Ratio Pending, CBC w Diff Pending, WBC Pending, RBC Pending, Hgb Pending, Hct Pending, MCV Pending, MCH Pending, RDW Pending, Plt Count Pending, MPV Pending, PUBS MCHC Pending 07/02/16 1800: Urine Color YEL, Urine Clarity CLEAR, Urine pH 6.5, Ur Specific [place] 1.010, Urine Protein NEG, Urine Ketones 40 H, Urine Nitrite NEG, Urine Bilirubin NEG, Urine Urobilinogen 0.2, Ur Leukocyte Esterase NEG, Ur Microscopic SEDIMENT EXAMINED, Urine RBC RARE, Urine WBC RARE, Ur Epithelial Cells RARE, Urine Bacteria RARE H, Urine Mucus RARE, Urine Hemoglobin TRACE-INTACT, Urine Glucose NEG 07/02/16 1200: Anion Gap 14, Estimated GFR > 60, BUN/Creatinine Ratio 15.7, Glucose 122 H, Calcium 9.7, Total Bilirubin 0.8, AST 21, ALT 34, Alkaline Phosphatase 82, Troponin I < 0.01, Total Protein 7.3, Albumin 4.4, Globulin 2.9, Albumin/ Globulin Ratio 1.5, CBC w Diff NO MAN DIFF REQ, RBC 4.95, MCV 93.4, MCH 31.0, RDW 13.2, MPV 7.9, Gran % 80.4 H, Lymphocytes % 15.9 L, Monocytes % 3.0, Eosinophils % 0.4, Basophils % 0.3, Absolute Granulocytes 8.3 H, Absolute Lymphocytes 1.6, Absolute Monocytes 0.3, Absolute Eosinophils 0, Absolute Basophils 0, PUBS MCHC 33.2, ESR Westergren 3 Assessment/Plan Assessment: Mrs. Jackson is a 60 yo women with PMHx of HTN managaed with Garlic tab only, presented to ED with a c/o of dificulty speech and Rt. upper extrimity weakness admitted for CVA Assessment and plan: #Left parietal stroke with preceding TIAs due to atherosclerotic cerebrovascular disease: Will conitnue cardiac telemetry Contniue neuro-checks Q4H. Carotid Doppler showed no carotid or vertebral artery stenosis Echocardiogram pending will f/u Fasting lipid profile today, still pending Will continue aspirin and Plavix Will continue atorvastatin 40 MG by mouth daily Permissive hypertension at this time, allow the current 170 to 180 systolic range PT/OT dvt ppx: Lovenox Full code Problem List: 1. Acute ischemic left MCA stroke Pain Ratin Pain Location: - Pain Goal: Remain pain free Pain Plan: - Tomorrow's Labs & Rationales: cbc, bep DVT/Prophylaxis: pharmacological
[2016-07-03 07:30] VITALS: BP 160/90
[2016-07-03 08:09] LABS: ABSOLUTE BASOPHIL COUNT 0 /CUMM (0.0-0.2); ABSOLUTE EOSINOPHIL COUNT 0.2 /CUMM (0.0-0.7); ABSOLUTE GRANULOCYTE CT 5.5 /CUMM (1.4-6.5); ABSOLUTE LYMPH COUNT 2.8 /CUMM (1.2-3.4); ABSOLUTE MONOCYTE COUNT 0.6 /CUMM (0.10-0.60); BASOPHIL % 0.5 % (0.0-2.0); EOSINOPHIL % 1.9 % (0-5); GRANULOCYTE % 60.6 % (42.2-75.2); HEMATOCRIT 42.6 % (37-47); MEAN CORPUSCULAR HGB 30.9 PG (27.0-31.0); MEAN CORPUSCULAR HGB CONC 33.3 G/DL (33.0-37.0); MEAN CORPUSCULAR VOLUME 92.8 FL (81.0-99.0); MEAN PLATELET VOLUME 8.4 FL (7.4-10.4); PLATELET COUNT 272 /CUMM (130-400); RBC DISTRIBUTION WIDTH 13.3 % (11.5-14.5); RED BLOOD CELL CT 4.59 /CUMM (4.20-5.40)
--- NOTE | 2016-07-03 11:30 | PN- Neurology ---
Subjective Subjective: Feeling a little better. Still difficulty with language and right arm. Gait was somewhat unsteady favoring the right leg Review of Systems: Headache, palpitation and chest pain denied. Objective Vital Signs and I&Os Vital Signs Date Time Temp Pulse Resp B/P B/P Pulse O2 O2 Flow FiO2 Mean Ox Delivery Rate 07/03 0800 95 Room Air Room Air 07/03 0730 97.9 86 14 160/90 95 Room Air 07/03 0100 85 150/90 07/03 0022 99.2 85 20 206/110 92 Room Air 07/03 0000 92 Room Air 07/02 1822 98.7 89 18 160/88 97 Room Air 07/02 1749 99.2 91 18 173/90 97 Room Air 07/02 1600 99.6 93 18 171/99 97 Room Air 07/02 1336 98.3 93 18 170/96 95 Room Air 07/02 1204 Room Air 07/02 1130 97.5 104 18 190/110 98 Room Air Intake & Output 07/03 1600 07/03 0800 07/03 0000 07/02 1600 07/02 0800 07/02 0000 Intake Total 662 336 Output Total 500 2 Balance 162 334 Intake, IV 542 96 Intake, Oral 120 240 Number 0 0 Bowel Movements Output, Urine 500 2 Patient 175 lb 175 lb Weight Physical Exam: Awake and alert, speech clear, mild nonfluent dysphasia. Able to name simple objects. He speaks in short phrases with some hesitation. Follows commands. Extinction of the right visual field. Left gaze preference. Right lower facial weakness. Right arm power 4/5, right leg on manual testing feels normal. Praxis diminished on the right. Sensation reduced on the right Current Medications: Current Medications Sig/Sathya Start time Last Medication Dose Route Stop Time Status Admin Acetaminophen 650 MG Q6P PRN 07/02 1814 AC PO Aspirin Buffered 325 MG DAILY 07/03 1000 DC PO Aspirin Buffered 81 MG DAILY 07/03 1000 AC 07/03 PO 1025 Aspirin Buffered 325 MG DAILY 07/02 181 DC 07/02 PO 2131 Atorvastatin Calcium 40 MG 1700 07/02 1900 CAN PO Atorvastatin Calcium 40 MG 1700 07/02 1900 AC 07/02 PO 2132 Clopidogrel Bisulfate 75 MG DAILY 07/03 1000 DC PO Clopidogrel Bisulfate 75 MG DAILY 07/02 181 AC 07/03 PO 1025 Enoxaparin Sodium 40 MG DAILY 07/03 1000 AC 07/03 SC 1025 Multivitamins 1 TAB DAILY 07/03 1000 DC PO Multivitamins 1 TAB DAILY 07/02 1815 AC 07/03 PO 1025 Oxycodone/ 1 TAB Q6P PRN 07/02 1814 AC Acetaminophen PO Patient Medication 1 UNIT ONE NR 07/02 1900 DC Teaching ED 07/02 1930 Sodium Chloride 1,000 ML SEE RATE 07/02 1615 AC 07/02 IV 2145 Results Last 24 Hours of Lab Results: Laboratory Tests 07/03 07/02 0610 1800 Chemistry Sodium (137 - 145 mmol/L) 141 Potassium (3.5 - 5.1 mmol/L) 3.8 Chloride (98 - 107 mmol/L) 106 Carbon Dioxide (22 - 30 mmol/L) 24 Anion Gap (5 - 16) 11 BUN (7 - 17 mg/dL) 10 Creatinine (0.5 - 1.0 mg/dL) 0.7 Estimated GFR (>60 ml/min) > 60 BUN/Creatinine Ratio (7 - 25 %) 14.3 Triglycerides (<150 mg/dL) 74 Cholesterol (<200 MG/DL) 203 H LDL Cholesterol, Calc (65 - 129 mg/dL) 124 HDL Cholesterol (40 - 60 mg/dL) 65 H Cholesterol/HDL Ratio (0.00 - 4.23 %) 3 Hematology CBC w Diff NO MAN DIFF REQ WBC (4.8 - 10.8 /CUMM) 9.0 RBC (4.20 - 5.40 /CUMM) 4.59 Hgb (12.0 - 16.0 G/DL) 14.2 Hct (37 - 47 %) 42.6 MCV (81.0 - 99.0 FL) 92.8 MCH (27.0 - 31.0 PG) 30.9 RDW (11.5 - 14.5 %) 13.3 Plt Count (130 - 400 /CUMM) 272 MPV (7.4 - 10.4 FL) 8.4 Gran % (42.2 - 75.2 %) 60.6 Lymphocytes % (20.5 - 51.1 %) 30.6 Monocytes % (1.7 - 9.3 %) 6.4 Eosinophils % (0 - 5 %) 1.9 Basophils % (0.0 - 2.0 %) 0.5 Absolute Granulocytes (1.4 - 6.5 /CUMM) 5.5 Absolute Lymphocytes (1.2 - 3.4 /CUMM) 2.8 Absolute Monocytes (0.10 - 0.60 /CUMM) 0.6 Absolute Eosinophils (0.0 - 0.7 /CUMM) 0.2 Absolute Basophils (0.0 - 0.2 /CUMM) 0 PUBS MCHC (33.0 - 37.0 G/DL) 33.3 Urines Urine Color (YEL,AMB,STR) YEL Urine Clarity (CLEAR) CLEAR Urine pH (5.0 - 8.0) 6.5 Ur Specific [place] (1.001 - 1.035) 1.010 Urine Protein (NEG,<30 MG/DL) NEG Urine Ketones (NEG) 40 H Urine Nitrite (NEG) NEG Urine Bilirubin (NEG) NEG Urine Urobilinogen (0.1 - 1.0 EU/dl) 0.2 Ur Leukocyte Esterase (NEG) NEG Ur Microscopic SEDIMENT EXAMINED Urine RBC (0 - 5 /HPF) RARE Urine WBC (0 - 2 /HPF) RARE Ur Epithelial Cells (NONE,FEW) RARE Urine Bacteria (NEG/NONE) RARE H Urine Mucus (FEW,NONE) RARE Urine Hemoglobin (NEG) TRACE-INTACT Urine Glucose (N MG/DL) NEG 07/02 1200 Chemistry Sodium (137 - 145 mmol/L) 144 Potassium (3.5 - 5.1 mmol/L) 4.1 Chloride (98 - 107 mmol/L) 103 Carbon Dioxide (22 - 30 mmol/L) 27 Anion Gap (5 - 16) 14 BUN (7 - 17 mg/dL) 11 Creatinine (0.5 - 1.0 mg/dL) 0.7 Estimated GFR (>60 ml/min) > 60 BUN/Creatinine Ratio (7 - 25 %) 15.7 Glucose (65 - 99 mg/dL) 122 H Calcium (8.4 - 10.2 mg/dL) 9.7 Total Bilirubin (0.2 - 1.3 mg/dL) 0.8 AST (14 - 36 U/L) 21 ALT (9 - 52 U/L) 34 Alkaline Phosphatase (<127 U/L) 82 Troponin I (< 0.11 ng/ml) < 0.01 Total Protein (6.3 - 8.2 g/dL) 7.3 Albumin (3.5 - 5.0 g/dL) 4.4 Globulin (1.9 - 4.2 gm/dL) 2.9 Albumin/Globulin Ratio (1.1 - 2.2 %) 1.5 Hematology CBC w Diff NO MAN DIFF REQ WBC (4.8 - 10.8 /CUMM) 10.3 RBC (4.20 - 5.40 /CUMM) 4.95 Hgb (12.0 - 16.0 G/DL) 15.4 Hct (37 - 47 %) 46.3 MCV (81.0 - 99.0 FL) 93.4 MCH (27.0 - 31.0 PG) 31.0 RDW (11.5 - 14.5 %) 13.2 Plt Count (130 - 400 /CUMM) 289 MPV (7.4 - 10.4 FL) 7.9 Gran % (42.2 - 75.2 %) 80.4 H Lymphocytes % (20.5 - 51.1 %) 15.9 L Monocytes % (1.7 - 9.3 %) 3.0 Eosinophils % (0 - 5 %) 0.4 Basophils % (0.0 - 2.0 %) 0.3 Absolute Granulocytes (1.4 - 6.5 /CUMM) 8.3 H Absolute Lymphocytes (1.2 - 3.4 /CUMM) 1.6 Absolute Monocytes (0.10 - 0.60 /CUMM) 0.3 Absolute Eosinophils (0.0 - 0.7 /CUMM) 0 Absolute Basophils (0.0 - 0.2 /CUMM) 0 PUBS MCHC (33.0 - 37.0 G/DL) 33.2 ESR Westergren (0 - 20 MM) 3 Recent Imaging Studies: Dopplers: No appreciable stenoses in the extracranial carotid arteries or vertebral arteries. Slightly increased velocities within portions of the right common and internal carotid artery and within the left common carotid artery likely result from the abnormal intracranial blood flow. CTA Head: CTA head: In the anterior circulation, there is narrowing of the caliber of the petrous left internal carotid artery extending through the cavernous portion. There is severe narrowing of the supraclinoid left internal carotid artery which appears occluded just proximal to the internal carotid artery bifurcation. There is significant atheromatous calcification of the bilateral cavernous Assessment/Plan Assessment: Stroke, left MCA pattern due to intracranial stenosis/near occlusion of the carotid at the intracranial siphon. No significant stenosis and no ulcerated plaques found on carotid Doppler or CTA of the extracranial carotids. So far no dysrhythmias on telemetry, echocardiogram seeking possible sources of embolus pending. Physical therapy already begun Plan: Continue dual antiplatelet therapy and statin Permissive hypertension. At this time avoid any reduction in blood pressure medically unless systolic greater than 210 and diastolic greater than 110 Good candidate for high level rehabilitation: [facility]. Would place referral now. No indication for surgical or endovascular intervention at this time[facility]
[2016-07-03 16:37] VITALS: BP 180/90
--- NOTE | 2016-07-03 18:10 | PN- Att Addend ---
Attending MD Review Statement Attending Statement Attending MD Statement: examined this patient, discuss w/resident/PA/PRODUCT/DEVICE TECHNOLOGIST, agreed w/resident/PA/PRODUCT/DEVICE TECHNOLOGIST, reviewed EMR data (avail), discussed w/nursing Attending Assessment/Plan: Patient seen and examined at bedside. Discussed with patient as well as patient 's family at bedside the care plan. Patient presented with aphasia as well as word finding difficulty and a right hand weakness. Patient was found to have a stroke and is currently on dual antiplatelet therapy with statins. We will continue with that. Discussed with patient in detail the care plan. If patient is stable may possibly discharge the patient tomorrow
[2016-07-04 00:06] VITALS: BP 150/100
[2016-07-04 08:07] VITALS: BP 140/80
--- NOTE | 2016-07-04 08:56 | PN- Housestaff ---
See Addendum Subjective Follow-up For: Acute left parieto occipital CVA Tele-Events Since Last Visit: NSR/ Sinus bradycardia 58-78bpm Subjective: I saw and examined the patient today morning Today is her birthday, she celebrated with her entire family in hospital. She is feeling much better today, able to work with physical therapy. Offers no complaints. Able to communicate well without any dysarthria. As neurology cleared her today we discharged her today. Review of Systems Constitutional: Reports: see HPI. Comments: ROS negative except the above. Objective Last 24 Hrs of Vital Signs/I&O Vital Signs Date Time Temp Pulse Resp B/P B/P Pulse O2 O2 Flow FiO2 Mean Ox Delivery Rate 07/04 0807 98.1 72 14 140/80 96 Room Air 07/04 0006 98.6 85 20 150/100 97 Room Air 07/03 1637 99.0 78 20 180/90 96 Room Air Intake & Output 07/04 1600 07/04 0800 07/04 0000 Intake Total 840 750 Output Total 350 800 Balance 490 -50 Intake, IV 600 300 Intake, Oral 240 450 Output, Urine 350 800 Physical Exam General Appearance: Alert, Oriented X3, Cooperative Skin: No Rashes HEENT: Atraumatic, PERRLA Neck: Supple Cardiovascular: Normal S1, Normal S2 Lungs: Clear to Auscultation, Normal Air Movement Abdomen: Normal Bowel Sounds, Soft, No Tenderness Neurological: Normal Speech, Normal Tone, Sensation Intact Extremities: No Clubbing, No Cyanosis, No Edema Current Medications: Current Medications Sig/Sathya Start time Last Medication Dose Route Stop Time Status Admin Acetaminophen 650 MG Q6P PRN 07/02 1814 AC PO Aspirin Buffered 81 MG DAILY 07/03 1000 AC 07/04 PO 0958 Atorvastatin Calcium 40 MG 1700 07/02 1900 AC 07/03 PO 1727 Clopidogrel Bisulfate 75 MG DAILY 07/02 181 AC 07/04 PO 0958 Enoxaparin Sodium 40 MG DAILY 07/03 1000 AC 07/04 SC 1000 Multivitamins 1 TAB DAILY 07/02 1814 AC 07/04 PO 0958 Oxycodone/ 1 TAB Q6P PRN 07/02 181 AC Acetaminophen PO Potassium Chloride 40 MEQ ONCE ONE 07/04 1115 DC PO 07/04 1116 Sodium Chloride 1,000 ML SEE RATE 04/21 1615 DC 07/03 IV 1219 Lines/Diet/Fluids Lines: peripheral lines Assessment/Plan Assessment: Mrs. Jackson is a 60 yo women with PMHx of HTN managaed with Garlic tab only, presented to ED with a c/o of dificulty speech and Rt. upper extrimity weakness admitted for CVA Assessment and plan: Acute left Parieto occipital CVA (secondary to uncontrolled HTN) without any hemorrhagic conversion: * Recovering very well, carotid doppler, ECHO are normal (r/o embolic causes) * As CT reveals both anterior and posterior circulation involvement - atherosclerotic carotid disease is the most probable reason (probably from hypertension). * Started on aspirin 81mg and plavix 75mg dialy. * Abnormal Lipid profile with cholesterol of 203, LDL 124 - started on atorvastatin 40mg daily. * Appears stable for discharge today with home health services for physical therapy, occupational therapy, speech therapy. History of hypertension * Patient is taking garlic pill daily (??) - we continued the same medication. * Needs to be on medical regimen to prevent further strokes, Please follow up. dvt ppx: Lovenox Full code Problem List: 1. CVA (cerebral vascular accident) 2. Left-sided cerebrovascular accident (CVA) 3. Expressive aphasia 4. RUE weakness 5. HTN (hypertension) Pain Ratin Pain Location: n/a Pain Goal: Pain 4 or less Pain Plan: tylenol prn Tomorrow's Labs & Rationales: None
--- NOTE | 2016-07-04 14:22 | PN- Neurology ---
Subjective Subjective: improved no new complaints or transient worsenings Review of Systems: no headache or cardiac symptoms Objective Vital Signs and I&Os Vital Signs Date Time Temp Pulse Resp B/P B/P Pulse O2 O2 Flow FiO2 Mean Ox Delivery Rate 07/04 0807 98.1 72 14 140/80 96 Room Air 07/04 0006 98.6 85 20 150/100 97 Room Air 07/03 1637 99.0 78 20 180/90 96 Room Air Intake & Output 07/04 1600 07/04 0800 07/04 0000 07/03 1600 07/03 0800 07/03 0000 Intake Total 039 762 0159 662 336 Output Total 171 147 1632 500 2 Balance 490 -50 -25 162 334 Intake, IV 600 300 600 542 96 Intake, Oral 240 450 500 120 240 Number 0 0 Bowel Movements Output, Urine 358 278 3664 500 2 Patient 175 lb Weight Physical Exam: alert, oriented, mild dysarthria 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 ax 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 4+/5 on right moderately severe dyspraxia right gait stable per PT Echocardiogram underway now Current Medications: Current Medications Sig/Sathya Start time Last Medication Dose Route Stop Time Status Admin Acetaminophen 650 MG Q6P PRN 07/02 1815 AC PO Aspirin Buffered 81 MG DAILY 07/03 1000 AC 07/04 PO 0958 Atorvastatin Calcium 40 MG 1700 07/02 1900 AC 07/03 PO 1727 Clopidogrel Bisulfate 75 MG DAILY 07/02 1815 AC 07/04 PO 0958 Enoxaparin Sodium 40 MG DAILY 07/03 1000 AC 07/04 SC 1000 Multivitamins 1 TAB DAILY 07/02 1815 AC 07/04 PO 0958 Oxycodone/ 1 TAB Q6P PRN 07/02 181 AC Acetaminophen PO Potassium Chloride 40 MEQ ONCE ONE 07/04 1115 DC PO 07/04 1116 Sodium Chloride 1,000 ML SEE RATE 07/02 1615 DC 07/03 IV 1219 Results Recent Imaging Studies: no new Assessment/Plan Assessment: CVA, stable and improving Plan: if Echo does not reveal unexpected abnormalities, OK to discharge home with out patient PT OT ST. she prefers this to in-pt rehab and it appears that she will be safe at home
--- NOTE | 2016-07-04 14:54 | ECHOCARDIOGRAM REPORT ---
DILAN BALDERRAMA Age: 61 : 1955 Gender: F Exam Date: 07/04/2016 14:00 Exam Location: [place] Ht (in): 67 Wt (lb): 175 BSA: 1.95 BP: 150 / 100 Ordering Physician: HAKAN VELASQUEZ MD Referring Physician: HAKAN VELASQUEZ MD Technologist: Mera Daugherty [facility] Room Number: 185-02 Indications: STROKE Rhythm: Technical Quality: good FINDINGS Left Ventricle Normal LV chamber size wall thickness and systolic function. The estimated LVEF is 60% without focal wall motion of modalities. Right Ventricle Grossly normal appearing right ventricle Right Atrium Normal appearing right atrium Left Atrium Normal-appearing left atrium Mitral Valve Normal-appearing mitral valvular leaflets structure and function. There is mild mitral regurgitation. Aortic Valve Normal-appearing aortic valvular leaflet structure and function. There is trace aortic insufficiency. Tricuspid Valve Normal appearing tricuspid valvular leaflet structure and function. There is trace tricuspid regurgitation. The estimated PA systolic pressure is normal Pulmonic Valve Normal-appearing pulmonic valvular leaflet structure and function Pericardium Normal-appearing pericardium Great Vessels Normal-appearing great vessels CONCLUSIONS Normal LV chamber size wall thickness and systolic function. The estimated LVEF is 60% without focal wall motion of modalities. Normal-appearing mitral valvular leaflets structure and function. There is mild mitral regurgitation. Normal-appearing aortic valvular leaflet structure and function. There is trace aortic insufficiency. Normal appearing tricuspid valvular leaflet structure and function. There is trace tricuspid regurgitation. The estimated PA systolic pressure is normal. Matthew Mack M.D. (Electronically Signed) Final Date: 04 July 2016 14:53 MEASUREMENTS (Male / Female) Normal Values 2D ECHO LV Diastolic Diameter PLAX 4.0 cm 4.2 - 5.9 / 3.9 - 5.3 cm LV Systolic Diameter PLAX 2.2 cm 2.1 - 4.0 cm LV Fractional Shortening PLAX 45.0 % 25 - 46 % LV Ejection Fraction 2D Teich 76.9 % IVS Diastolic Thickness 1.0 cm LVPW Diastolic Thickness 1.1 cm LV Relative Wall Thickness 0.5 RV Internal Dim ED PLAX 3.0 cm 1.9 - 3.8 cm LVOT Diameter 2.0 cm Aortic Root Diameter 2.9 cm LA Systolic Diameter LX 2.4 cm 3.0 - 4.0 / 2.7 - 3.8 cm LA Volume 41.0 cm 18 - 58 / 22 - 52 cm Ascending Aorta Diameter 3.0 cm DOPPLER AV Peak Velocity 168.0 cm/s AV Peak Gradient 11.3 mmHg AV Mean Velocity 111.0 cm/s AV Mean Gradient 6.0 mmHg AV Velocity Time Integral 34.7 cm LVOT Peak Velocity 105.0 cm/s LVOT Peak Gradient 4.4 mmHg LVOT Mean Velocity 71.1 cm/s LVOT Mean Gradient 2.0 mmHg LVOT Velocity Time Integral 23.5 cm LVOT Stroke Volume 73.8 cm AV Area Cont Eq vti 2.1 cm AV Area Cont Eq pk 2.0 cm MV Peak Velocity 90.9 cm/s MV Peak Gradient 3.3 mmHg MV Mean Velocity 55.3 cm/s MV Mean Gradient 1.0 mmHg Mitral E Point Velocity 70.6 cm/s Mitral A Point Velocity 88.4 cm/s Mitral E to A Ratio 0.8 MV PHT Velocity 79.9 cm/s MV Deceleration Bonner 288.0 cm/s MV Pressure Half Time 83.2 ms MV Area PHT 2.6 cm MV Deceleration Time 164.0 ms TR Peak Velocity 120.0 cm/s TR Peak Gradient 5.8 mmHg Right Atrial Pressure 5.0 mmHg Pulmonary Artery Systolic Pressu 10.8 mmHg Right Ventricular Systolic Press 10.8 mmHg PV Peak Velocity 106.0 cm/s PV Peak Gradient 4.5 mmHg PV Mean Velocity 75.4 cm/s PV Mean Gradient 3.0 mmHg PV Velocity Time Integral 22.2 cm LV E' Lateral Velocity 12.3 cm/s Mitral E to LV E' Lateral Ratio 5.7 LV E' Septal Velocity 6.2 cm/s Mitral E to LV E' Septal Ratio 11.3
[2016-07-04] MEDS ORDERED: ASPIRIN EC81 M1 PO (15:27)
[2016-07-04] MEDS ORDERED: ATORVASTATIN CA40 M1 PO (15:27)
[2016-07-04] MEDS ORDERED: PLAVIX75 M1 PO (15:27)
--- NOTE | 2016-07-04 15:36 | Patient Discharge Instructions ---
Discharge Instructions General Discharge Information You were seen/treated for: Acute stroke Watch for these problems: any sudden increase in weakness, changes in speech, vision needs immediate medical attensiton. Special Instructions: Please follow up with your PCP () in a week Please follow up with as an outpatient Please take your medications regularly. Diet Continue normal diet: Yes Activity Activity Self Limited: Yes Acute Coronary Syndrome Inclusion Criteria At DC or during hospital stay patient has or had the following: ACS DIAGNOSIS No Discharge Core Measures Meds if any: Prescribed or Continued at Discharge Meds if any: NOT Prescribed or Continued at Discharge Congestive Heart Failure Inclusion Criteria At DC or during hospital stay patient has or had the following: CHF DIAGNOSIS No Discharge Core Measures Meds if any: Prescribed or Continued at Discharge Meds if any: NOT Prescribed or Continued at Discharge Cerebrovascular accident Inclusion Criteria At DC or during hospital stay patient has or had the following: CVA/TIA Diagnosis Yes Discharge Core Measures Meds if any: Prescribed or Continued at Discharge Antithrombotic Yes Statin (required if LDL =>70) Yes Anticoagulant Yes Meds if any: NOT Prescribed or Continued at Discharge Venous thromboembolism Inclusion Criteria VTE Diagnosis No VTE Type NONE VTE Confirmed by (Test) NONE Discharge Core Measures - Per Current guidelines, there needs to be overlap - treatment for the first 5 days of Warfarin therapy. - If discharged on Warfarin prior to 5 days of - overlap therapy, the patient will need to be - assessed for post discharge needs including - *Post discharge parental anticoagulation - *Warfarin and/or parental anticoagulation education - *Follow up date to check INR post discharge At least 5 days overlap therapy as Inpatient No Meds if any: Prescribed or Continued at Discharge Note: Overlap Therapy is Warfarin and Anticoagulant Meds if any: NOT Prescribed or Continued at Discharge
[2016-07-04 15:50] VITALS: BP 138/80
--- NOTE | 2016-07-04 16:47 | PN- Att Addend ---
Attending MD Review Statement Attending Statement Attending MD Statement: examined this patient, discuss w/resident/PA/GARAGE [employer]OR OPENER INSTALLER, agreed w/resident/PA/GARAGE DOOR OPENER INSTALLER, discussed with family, reviewed EMR data (avail), discussed w/ nursing, discussed w/case mgmt Attending Assessment/Plan: Patient seen and examined at bedside. Discussed with patient and patient's family at bedside the care plan. Reviewed echocardiogram and is noncontributory. Discussed with neurologist the care plan. Patient is doing better from physical therapy standpoint and is stable to be discharged home. We will discharge the patient home in stable condition. The see the discharge summary for more details.
--- NOTE | 2016-07-05 07:19 | Discharge Summary ---
Visit Information Visit Dates Admission Date: 07/02/16 Discharge Date: 07/04/16 Hospital Course Course Attending Physician: MACARENA DUONG MD Primary Care Physician: JARED HARRIS Consulting Request: Consulting Specialty: Neurology Consulting Physician: Johnathan Romeo MD Reason for Consult: Left parietal stroke Hospital Course: Ms. Jackson is a 60 y/o F with PMHx of HTN who presented with waxing and waning neurological symptoms including word-finding difficulties and right hand weakness of several weeks duration with acute worsening over the past x2 days. An MRI had been ordered by her primary care physician which had shown left parietal stroke and she had seen a neurologist who had started her on aspirin and Plavix but her symptoms had progressively worsened. On initial presentation, vitals were remarkable for BP 190/110. Neurological exam was remarkable for mild -to-moderate expressive aphasia, mild right facial droop, RUE weakness and apraxia, reduced sensation to light touch on RUE and right homonymous hemianopsia. CBC, BMP and LFTs were unremarkable. CTA Head/Neck showed subacute/ acute infarct without evidence of hemorrhage in the left parieto-occipital region, as well as severe diffuse vasculopathy with stenosis of the bilateral internal carotid arteries. tPA was not administered as patient was out of the window, having had the symptoms for more than two days. She was admitted to telemetry for further evaluation and management of acute ischemic left parietal CVA: #Acute ischemic left MCA CVA: Patient was seen by neurology who felt that current presentation represented left parietal stroke within the MCA territory secondary to intracranial stenosis/near occlusion of the carotid at the intracranial siphon, with preceding TIAs in the setting of atherosclerotic cerebrovascular disease. Patient was started on aspirin, Plavix as well as atorvastatin 40 mg PO daily. Permissive hypertension was allowed and neuro checks were performed every 4 hours. Fasting lipid profile was checked which was remarkable for borderline-high cholesterol of 203 and HDL of 65. LDL and triglycerides were within normal limits. Patient was monitored on telemetry which revealed no arrhythmias. Carotid doppler US was performed which showed no significant stenoses or ulcerated plaques of the external carotids. ECHO was unremarkable with no embolic source detected. Symptoms including RUE weakness, aphasia and gait had improved by day of discharge but she continued to have residual deficits with persistent [id number] apraxia of RUE. Patient worked with physical therapy throughout hospitalization and was offered the option of being placed in a high level rehabilitation facility but she was discharged home with outpatient physical therapy according to her wishes. * Patient was instructed to follow up with consulting neurologist Dr. Johnathan Romeo on discharge. * Patient will continue aspirin 81 mg PO daily, atorvastatin 40 mg PO daily and Plavix 75 mg PO daily on discharge. Allergies: Coded Allergies: gluten (INTOLERANCE 07/02/16) Disposition Summary Disposition Principal Diagnosis: Acute ischemic left MCA CVA Additional Diagnosis: Transient ischemic attack Discharge Disposition: home health services Discharge Instructions General Discharge Information Code Status: Full Code Patient's Diet: Regular Patient's Activity: As tolerated Follow-Up Instructions/Appts: Please follow up with your PCP () in a week Please follow up with as an outpatient Please take your medications regularly. Medications at Discharge Discharge Medications: Continue taking these medications: Garlic (Garlic) 1 EACH TABLET 3 Tablet ORAL THREE TIMES DAILY Comments: Last Taken:NOT GIVEN IN THE HOSPITAL Time: Start taking the following new medications: Clopidogrel Bisulfate (Plavix) 75 MG TABLET 75 Milligram ORAL DAILY Days = 28 No Refills Comments: Last Taken:07/04/16 Time:10 AM Atorvastatin Calcium (Atorvastatin Calcium) 40 MG TABLET 40 Milligram ORAL 5 PM Days = 28 No Refills Comments: Last Taken:07/04/16 Time:4:30 PM Aspirin (Ecotrin*) 81 MG TABLET. 81 Milligram ORAL DAILY Days = 28 No Refills Comments: Last Taken:07/04/16 Time:10 AM Copies To: LUANA HARRIS MD,JOHNATHAN Koch Attending MD Review Statement Documenting Attending: JOSEFA CALDERA MD Other Findings: please see my separate attending note for more details
== END 2016-07-04 17:09 | disposition home health service (06) | DRG 66 ==
LOC: ERH 11:21 → ERHI 15:29 → 1NO 15:29 → ENRESERV 16:34 → 1NO 18:11
PROVIDERS: Student in an Organized Health Care Education/Training Program; ADMIT Internal Medicine
DX: I63.233 Cerebral infarction due to unspecified occlusion or stenosis of bilateral carotid arteries (principal); I67.2 Cerebral atherosclerosis; I10 Essential (primary) hypertension; Z87.891 Personal history of nicotine dependence
CPT/HCPCS: 1NSP; 81001; 82436; 93005; 93010; 93306; 97116-GO; 97161-GP; J1650